=== PATIENT | female | born 1980 | race American Indian/Alaskan Native ===

== ENCOUNTER 2017-11-19 03:36 | Emergency (ER) | payer OTHER, MEDICARE ==
[2017-11-19 03:44] VITALS: BP 195/112
[2017-11-19] MEDS ORDERED: NACL 0.9% 1000 ML 1,000 ML IV ONE (03:44)
[2017-11-19 04:14] LABS: Basophils % (Auto) 0.4 % (0.0-1.8); Eosinophils # (Auto) 0.2 K/mm3 (0.0-0.4); Eosinophils % (Auto) 2.7 % (0.0-4.3); Hemoglobin 12.7 gm/dl (10.1-14.3); Lymphocytes # (Auto) 2.3 K/mm3 (1.2-5.4); Lymphocytes % (Auto) 29.6 % (13.4-35.0); Monocytes # (Auto) 0.4 K/mm3 (0.0-0.8); Monocytes % (Auto) 5.1 % (0.0-7.3)
[2017-11-19 04:28] LABS: Hematocrit 38.1 % (30.3-42.9); Red Blood Count 4.37 M/mm3 (3.65-5.03)
[2017-11-19 04:29] LABS: Mean Corpuscular HGB Conc 34 % (30-34); Mean Corpuscular Hemoglobin 30 pg (28-32); Mean Corpuscular Volume 87 fl (79-97); Mean Platelet Volume 8.2 fl (6-12); Platelet Count 210 K/mm3 (140-440); Red Cell Distribution Width 14.1 % (13.2-15.2)
[2017-11-19 04:35] LABS: Alanine Aminotransferase 11 units/L (7-56); Albumin 4.2 g/dL (3.9-5); BUN/Creatinine Ratio 9; Blood Urea Nitrogen 6 mg/dL (7-17); Calcium 9.1 mg/dL (8.4-10.2); Hemolysis Index 5; Lipase 41 units/L (13-60)
[2017-11-19 04:46] LABS: Bilirubin,Urine NEG (Negative); Blood,Urine SM (Negative); Color,Urine Yellow (Yellow); Mucus,Urine FEW /HPF; Protein,Urine <15 mg/dL mg/dL (Negative)
== END 2017-11-19 05:21 ==
LOC: ED 03:36
DX: R10.9 Unspecified abdominal pain (principal); Z53.21 Procedure and treatment not carried out due to patient leaving prior to being seen by health care provider
CPT/HCPCS: 36415; 80053; 81001; 83690; 84703; 85025